=== PATIENT | female | born 1970 | race Caucasian/White ===

== ENCOUNTER 2016-05-22 06:29 | Day surgery (SDC) | payer BC ==
[~2016-05-22 06:29] MED LIST: Acetaminophen 1000mg Inj 100 ML IV ONE; LIDOCAINE W/ SODIUM BICARB 0.5 ML SYR ONE; Lactated Ringers 2,000 ML PRIMARY IV ONE; Sodium Chloride 0.9% 100 ML IV ONE
[2016-05-22] MEDS ORDERED: Prochlorperazine Edisylate Inj 10mg/2ml vial IVP PRN (06:51)
[2016-05-22] MEDS ORDERED: fentaNYL Inj 100 MCG/2 ML VIAL IVP PRN (06:51)
[2016-05-22] MEDS ORDERED: ATROPINE SULFATE 0.4 MG/1 ML VIAL IVP PRN (06:51)
[2016-05-22] MEDS ORDERED: Ondansetron ODT Tab 8 MG TAB PO PRN ×2 (06:51→09:30)
[2016-05-22] MEDS ORDERED: ONDANSETRON 4 MG/2 ML VIAL IVP PRN (06:51)
[2016-05-22] MEDS ORDERED: NORMAL SALINE 10 ML SYRINGE FLUSH IVP PRN ×2 (06:51→09:30)
[2016-05-22] MEDS ORDERED: BUPIVACAINE 0.25% W/ EPI - 10 ML VIAL ONE (06:55)
[2016-05-22] MEDS ORDERED: Opium-Belladonna 16.2-60mg 1 EACH SUPP.RECT RECTAL ONE ×2 (06:56→09:28)
[2016-05-22] MEDS ORDERED: Acetaminophen 1000mg Inj 100 ML IV ONE (06:59)
[2016-05-22] MEDS ORDERED: SCOPOLAMINE HYDROBROMIDE 1.5 MG - 1 EACH PATCH TRANSDERM ONE (06:59)
[2016-05-22] MEDS ORDERED: Lactated Ringers 1,000 ML PRIMARY IV SCH (07:00)
[2016-05-22 07:01] LABS: HEMATOCRIT 39.2 % (37.0-47.0); HEMOGLOBIN 13.3 g/dL (12.0-16.0)
[2016-05-22 07:02] LABS: BILIRUBIN,URINE NEGATIVE (NEG); CLARITY,URINE CLEAR (CLEAR); GLUCOSE, URINE (UA) NEGATIVE (NEG); LEUKOCYTE ESTERASE ,URINE SMALL (NEG); NITRATE,URINE NEGATIVE (NEG); OCCULT BLOOD,URINE LARGE (NEG); PROTEIN,URINE NEGATIVE (NEG); UROBILINOGEN,URINE 0.2 EU/dL (0.2)
[2016-05-22] MEDS ORDERED: KETAMINE 100 MG/1 ML - 5 ML ONE (07:02)
[2016-05-22] MEDS ORDERED: MIDAZOLAM 5 MG/1 ML ONE (07:02)
[2016-05-22] MEDS ORDERED: SUFENTANIL 50 MCG/1 ML ONE (07:03)
[2016-05-22 07:05] LABS: URINE SAMPLE TYPE VOIDED SPECIMEN
[2016-05-22] MEDS ORDERED: Sodium Chloride 0.9% vial 20 ML ONE (07:08)
[2016-05-22] MEDS ORDERED: ROCURONIUM 10 MG/1 ML - 5 ML VIAL IVP ONE (07:13)
[2016-05-22 07:24] LABS: BACTERIA,URINE FEW; RBC,URINE 40-60 /hpf; SQUAMOUS EPITHELIAL CELL,UR MANY; URINE CRYSTALS MODERATE; WBC,URINE 40-60
[2016-05-22 07:32] VITALS: RESP 16
[2016-05-22] MEDS ORDERED: LIDOCAINE HCL 2 % 10 ML JELLY URO-JECT TOPICAL ONE ×2 (08:53→09:25)
[2016-05-22] MEDS ORDERED: Sodium Chloride 0.9% 1,000 ML ONE (09:10)
[2016-05-22] MEDS ORDERED: ONDANSETRON 4 MG/2 ML VIAL ONE (09:19)
[2016-05-22] MEDS ORDERED: SUGAMMADEX SODIUM 200 MG/2 ML VIAL IV ONE (09:19)
[2016-05-22] MEDS ORDERED: IBUPROFEN 800 MG TABLET PO PRN (09:30)
[2016-05-22] MEDS ORDERED: KETOROLAC 30 MG/1 ML VIAL IVP PRN (09:30)
[2016-05-22] MEDS ORDERED: oxyCODONE-ACETAMINOPHEN 5-325 TAB PO PRN (09:31)
--- NOTE | 2016-05-22 09:35 | OB.OP.NOTE ---
Operative Report Surgeon: Sophia Wrapper Stitcher: Dmaien Nelson MD Anesthesia Type: General Anesthesia Provider: Lucy Graves CRNA Surgery Date: 05/22/16 Preoperative Diagnosis: MMR/Dysmenorrhea/Fibroids Postoperative Diagnosis: Same Procedure: [place] Hysterectomy/Bilateral Salpingectomy/Cystoscopy Estimated Blood Loss (mL): 50 Fluids: 1800 ml Complications: None Findings at Surgery: Slightly enlarged, retroverted uterus with a small visible subserosal fibroid on the right side. Normal tubes and ovaries. No visible evidence of bowel, bladder, or ureter injury. Indications for the Procedure: MMR/Dysmenorrhea/Fibroids Description of Procedure: See dictated operative report. Plan: Routine post op care and discharge to home.
[2016-05-22] MEDS ORDERED: KETOROLAC 30 MG/1 ML VIAL ONE (09:39)
[2016-05-22] MEDS ORDERED: Lactated Ringers 1,000 ML PRIMARY IV ONE (09:45)
[2016-05-22] MEDS ORDERED: HYDROmorphone 2 MG/1 ML ONE (10:03)
[2016-05-22] MEDS: HYDROmorphone 2 MG/1 ML IVP PRN ×2 (10:04→10:10)
[2016-05-22] MEDS ORDERED: oxyCODONE IR Tab 5 MG TAB PO ONE ×3 (10:28→11:28)
[2016-05-22 13:09] VITALS: TEMP 98.1
[2016-05-22] MEDS ORDERED: DOCUSATE 100 MG CAPSULE PO SCH (21:00)
== END 2016-05-22 12:45 | disposition home or self-care (01) ==
LOC: SDSC 06:29
PROVIDERS: ATTEND Obstetrics & Gynecology
DX: N92.1 Excessive and frequent menstruation with irregular cycle (principal); N94.6 Dysmenorrhea, unspecified; D25.9 Leiomyoma of uterus, unspecified
CPT/HCPCS: 52000; 58552; 81001; 84703; 85014; 85018; A4216; J0131; J0694; J1885; J2704; J1170; J2250; J2405; J3490; J7030; J7050; J7120

== ENCOUNTER 2016-07-11 19:50 | Emergency (ER) | payer BC ==
[2016-07-11 20:55] LABS: BILIRUBIN,URINE NEGATIVE (NEG); CLARITY,URINE CLEAR (CLEAR); GLUCOSE, URINE (UA) NEGATIVE (NEG); LEUKOCYTE ESTERASE ,URINE NEGATIVE (NEG); NITRATE,URINE NEGATIVE (NEG); OCCULT BLOOD,URINE MODERATE (NEG); PROTEIN,URINE NEGATIVE (NEG); UROBILINOGEN,URINE 0.2 EU/dL (0.2)
[2016-07-11 20:58] LABS: BACTERIA,URINE RARE; RBC,URINE 0-1 /hpf; SQUAMOUS EPITHELIAL CELL,UR RARE; URINE SAMPLE TYPE CLEAN CATCH URINE; WBC,URINE 0
--- NOTE | 2016-07-11 21:34 | PDOC ---
General Adult HPI - General Chief Complaint: General Medical Stated Complaint: Vaginal discharge s/p partial hysterectomy 7 weeks Date Seen by Provider: 07/11/16 Time Seen by Provider: 21:25 Source: POSITIVE: Patient, RN/MD Exam Limitations: POSITIVE: No limitations Nurse's Notes Reviewed & Considered: Yes - History of Present Illness Initial Comment: The patient is a 46-year-old female. Patient states that she underwent a robotic hysterectomy on 22 May. She states that 5-6 days ago she wiped after urinating and noticed some "brownish-pinkish"discharge on the toilet paper. She states she has had some brownish discharge when she wipes her bottom since. 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 Her appointment has been rescheduled for this coming Thursday at 3:45 PM. She states that about one hour [employer] she noticed that she had some bright red bleeding on the toilet paper when she wiped. She did shovel some snow today. Last intercourse was 8 days ago. She has had some constipation. No fevers or chills. No abdominal or pelvic pain. Have you received a tetanus shot in the past 10 years?: Yes Body Location Affected: REPORTS: Genitalia Timing: REPORTS: Intermittent (As above) Duration: <1 week (5-6 days) Severity: Mild Quality: REPORTS: Other (No pain anywhere) Context: DENIES: None, Sitting, Standing, Activity, Emotional stress, Coughing, Recent Trauma, Recent Surgery, Sleep, Rest, Lifting, Turning, Bending, Fall, Near Fall, Other Modifying Factors: improves with: Nothing Similar Symptoms Previously: No Recent Care Received: REPORTS: Recently Seen, Treated by MD, Surgery (Robotic hysterectomy 22 May) Any Prior Injuries Related to Current Complaint?: No - Patient Home Medications Home Medications: Home Medications Cholecalciferol (Vitamin D3) [Vitamin D-3] 1 cap PO DAILY #0 cap 12/06/13 Lisdexamfetamine Dimesylate [Vyvanse] 1 cap PO DAILY #20 cap 06/16/14 - Patient Allergies Allergies/Adverse Reactions: Allergies Allergy/AdvReac Type Severity Reaction Status Date / Time codeine [Codeine] AdvReac Intermediate nausea/vomi Verified 05/22/16 06:40 ting Past Medical History - [place] HEENT History: Denies History Cardiovascular History: Denies History Additional Cardiovasular History: MILD TACHYCARDIA Respiratory History: Denies History Gastrointestinal History: GERD Additional Gastrointestinal History: CHRONIC CONSTIPATION Genitourinary History: Denies History Additional Endocrine History: THYROID NODULE FOLLOWED BY DR. MOCTEZUMA Musculoskeletal History: Back Pain Prosthesis or Implant: No Neurological History: Denies History Blood Disorders: Denies History Psychiatric History: Anxiety Disorders, ADD History of Sexually Transmitted Diseases: No Cancer History: Denies History History of MDRO: No History of Other Communicable Diseases: Yes (VARICELLA) History of Exposure to Communicable Disease: No Alcohol Use: None Substance Use Type: None Previous Surgical History: Yes Type / Date of Surgery: PENNY/ THYROID BIOPSIES IN 2013 Anesthesia Reactions: No Malignant Hyperthermia: No Significant Family History: No pertinent family hx Past Medical History Reviewed: Reviewed - No Changes ROS - Limitations ROS Limitations: No Limitations Constitution: REPORTS: Denies Symptoms Cardiovascular: REPORTS: Denies Cardiac Symptoms Respiratory: REPORTS: Denies Resp Symptoms Neurological: REPORTS: Denies Neuro Symptoms Gastrointestinal: REPORTS: Denies GI Symptoms Endocrine: REPORTS: Denies Symptoms Musculoskeletal: REPORTS: Denies MS Symptoms Genitourinary: REPORTS: Discharge (Scant vaginal bleeding as above). DENIES: Dysuria, Flank Pain, Hematuria, Dark Urine, Difficulty Urinating Eyes: REPORTS: Denies Symptoms ENT: REPORTS: Denies Symptoms Skin: REPORTS: Denies Skin Symptoms Lympathic: REPORTS: Denies Lympathic Symptoms Immunologic: POSITIVE: Denies Symptoms Psychiatric: POSITIVE: Denies Psych Symptoms General Adult Exam - General Appearance General Appearance: POSITIVE: Alert, Cooperative, No Acute Distress, No Evidence of Trauma - Neck Neck: POSITIVE: Normal Inspection, Thyroid Normal - Respiratory Respiratory: POSITIVE: No Respiratory Distress, Breath Sounds Normal, Chest Non- Tender - Cardiovascular Cardiovascular: POSITIVE: Regular Rate & Rhythm, No Murmur, No Gallop, PMI Normal Peripheral Pulses: Radial (R): 2+, Radial (L): 2+ - Abdomen Abdomen: Soft: (All Quadrants), Normal Bowel Sounds: (All Quadrants), Denies Tenderness: (All Quadrants), No Splenomegaly: (All Quadrants), No Hepatomegaly: (All Quadrants), No Guarding: (All Quadrants), No Rebound: (All Quadrants), No Palpable Pulse: (All Quadrants), No Palpabale Mass: (All Quadrants), No Distention: (All Quadrants), No Rigidity: (All Quadrants) Additional Abdominal Details: Abdomen is nontender and without masses or organomegaly or rebound. Speculum pelvic examination showed the vaginal cuff to be intact and sutures are in place. No prolapse. There was some dark red blood on the left corner of the vaginal cuff. - Back Back: POSITIVE: Normal Inspection - Skin Skin: POSITIVE: Normal Color, Warm, Dry, No Rash - Neurological / Psychological Neurological: POSITIVE: Oriented X3, digital content specialist Normal As Tested, Motor Normal, Sensation Normal, 5, 6 General Adult Progress - Results Reviewed by me Lab Results Reviewed: Yes Lab Results:: Laboratory Results 07/11/16 Range/Units 20:58 Ur Collection Type Clean catch urine Urine Color Yellow Urine Clarity Clear (CLEAR) Urine pH 6.0 (5.0-8.5) Ur Specific [place] 1.005 (1.005-1.030) Urine Protein Negative (NEG) mg/dl Urine Glucose (UA) Negative (NEG) mg/dL Urine Ketones Negative (NEG) Urine Occult Blood Moderate H (NEG) Urine Nitrate Negative (NEG) Urine Bilirubin Negative (NEG) Urine Urobilinogen 0.2 (0.2) EU/dL Ur Leukocyte Esterase Negative (NEG) Urine RBC 0-1 (NONE) /hpf Urine WBC 0 (NONE) Ur Squamous Epith Cells Rare (NONE) Ur Renal Epithelial Cell None (NONE) Urine Crystals None Urine Bacteria Rare (NONE) Urine Casts None (NONE) Urine Mucus None (NONE) Urine Trichomonas None (NONE) Urine Yeast None (NONE) - Patient's Progress Pain Medication Addressed: POSITIVE: Not Applicable School/Work Release Addressed: POSITIVE: Yes (No heavy lifting or intercourse until cleared for this activity by your parking lot supervisor) Re-Examine Time: 21:00 Re-Examine Comment: Case discussed with Dr. Cortes, patient's parking lot supervisor. Advised instructions as above; keep appointment for follow-up with him Thursday as is already arranged. Status: POSITIVE: Unchanged Antibiotics Given: No - Consult Consult (If Yes, Name of Consulting MD & Time Called): Yes (, parking lot supervisor, [phone] ) Consulting MD will see pt:: POSITIVE: In Office Counseled: POSITIVE: Patient, RE: Lab Results, RE: DX, RE: Need for F/U Patient Care Time - Estimated PCT Patient Care Time (In Minutes): 35 Vital Signs - Recent Vital Signs Vital Signs: Blood pressure 125/99, heart rate 117, respiratory rate 14, temperature 98.1F, oxygen saturation on room air 99% - VS Reviewed Vital Signs Reviewed: Yes Discharge Clinical Impression: Post-op bleeding Discharge Disposition: Discharged to Home Condition: Stable Patient Instructions Given at Discharge: Postoperative Bleeding (ED) Additional Instructions: I spoke with your parking lot supervisor, , regarding your post hysterectomy vaginal bleeding. The suture line in the back of the vagina is intact and there is no prolapse. You do have a small amount of bleeding from the left corner of the vaginal cuff. Dr. Cortes does not feel that you have any emergent or serious problems. Avoid intercourse. Avoid lifting. Please take a stool softener for your constipation. Follow-up with Dr. Cortes Thursday at 3:45 PM, as is already arranged. Return to the emergency room any time if bleeding becomes heavy or if condition worsens in any way. Follow Up With: KRYS CORTES [Primary Care Provider] - (Instructions as above. Follow-up with Dr. Cortes Thursday as is arranged. Return here anytime if condition worsens.)
[2016-07-11 22:19] VITALS: RESP 16; TEMP 98.1
== END 2016-07-11 21:30 | disposition home or self-care (01) ==
LOC: ER 19:50
DX: N99.820 Postprocedural hemorrhage of a genitourinary system organ or structure following a genitourinary system procedure (principal); Z90.710 Acquired absence of both cervix and uterus
CPT/HCPCS: 81001; 99282

== ENCOUNTER 2016-08-09 19:10 | Emergency (ER) | payer BC ==
[2016-08-09] MEDS ORDERED: DIPH,PERTUSS,TET(ADACEL) VAC/PF 0.5 ML (Tdap) IM ONE (19:27)
[2016-08-09] MEDS ORDERED: Lidocaine 1% 10 MG/ML - 20 ML VIAL SUBCUT ONE (19:27)
[2016-08-09] MEDS ORDERED: Lidocaine Inj 1% 20 ML ONE (19:29)
[2016-08-09] MEDS ORDERED: BUPivacaine 0.5%/Epi Inj 50 ML VIAL ONE (22:50)
[2016-08-09] MEDS ORDERED: BUPIVACAINE 0.5% W/ EPI - 10 ML VIAL ONE (22:51)
--- NOTE | 2016-08-10 01:53 | PDOC ---
Hand / Wrist Injury HPI - General Chief Complaint: Laceration / Wound Stated Complaint: LEFT HAND LACERATION Date Seen by Provider: 08/09/16 Time Seen by Provider: 19:25 Source: POSITIVE: Patient Exam Limitations: POSITIVE: No limitations Nurse's Notes Reviewed & Considered: Yes - History of Present Illness Initial Comments: The patient is a 46-year-old female who presents to the emergency department with a laceration to her left hand. She states that she was making cuco and was slicing a tomato with a new knife. She apparently slipped with the knife and cut her left hand in the webspace between her thumb and index finger. She is unsure when she last had a tetanus shot however thinks it might of been 2000. She denies any other associated injuries or complaints. She does admit that she was drinking this evening. Have you received a tetanus shot in the past 10 years?: Yes - Patient Home Medications Home Medications: Home Medications Cholecalciferol (Vitamin D3) [Vitamin D-3] 1 cap PO DAILY #0 cap 12/06/13 Lisdexamfetamine Dimesylate [Vyvanse] 1 cap PO DAILY #20 cap 06/16/14 - Patient Allergies Allergies/Adverse Reactions: Allergies Allergy/AdvReac Type Severity Reaction Status Date / Time codeine [Codeine] AdvReac Intermediate nausea/vomi Verified 07/11/16 21:40 ting Past Medical History - [place] RIGGS History: Denies History Cardiovascular History: Denies History Additional Cardiovasular History: MILD TACHYCARDIA Respiratory History: Denies History Gastrointestinal History: GERD Additional Gastrointestinal History: CHRONIC CONSTIPATION Genitourinary History: Denies History Additional Endocrine History: THYROID NODULE FOLLOWED BY DR. MOCTEZMUA Musculoskeletal History: Back Pain Prosthesis or Implant: No Neurological History: Denies History Blood Disorders: Denies History Psychiatric History: Anxiety Disorders, ADD History of Sexually Transmitted Diseases: No Cancer History: Denies History History of MDRO: No History of Other Communicable Diseases: Yes (VARICELLA) History of Exposure to Communicable Disease: No Alcohol Use: None Substance Use Type: None Previous Surgical History: Yes Type / Date of Surgery: PENNY/ THYROID BIOPSIES IN 2013 Anesthesia Reactions: No Malignant Hyperthermia: No Significant Family History: No pertinent family hx Past Medical History Reviewed: Reviewed - No Changes ROS - Limitations ROS Limitations: No Limitations (Review of systems otherwise noncontributory) Hand / Wrist Injury Exam - General Appearance General Appearance: POSITIVE: Alert, Cooperative, No Acute Distress - Extremities Upper Extremity: POSITIVE: Other (examination left hand does reveal a 2 cm laceration in the webspace between the thumb and index finger. There is no visible foreign body or active bleeding at this time, the wound does appear to be through the full-thickness of the skin however does not involve any of the deep structures. Her movement of her thumb and index finger is normal and she has good cap refill and sensation to both) Neurovascular / Tendon: POSITIVE: Sensation Normal, Motor Normal, No Vascular Compromise, Tendon Function Normal Procedure - Laceration/Wound Repair Site of Lac/Wound:: Left hand in the webspace between the thumb and index finger Wound Length (cm): 2 Wound's Depth, Shape: Into subcutaneous tissue, Linear Distal CMS: Yes Skin Prep: Betadine Prep Local Anesthesia Used - Indicate Amt Used in Comment: Lidocaine 1%: Yes Wound Explored: Clean Wound Repaired With: Sutures single layer Suture Size/Type: 5:0, Ethilon Number of Sutures: 3 Sterile Dressing Applied?: Yes Hand / Wrist Injury Progress - Patient's Progress MDM / ED Course: The laceration was repaired as above. Wound care instructions were discussed. The patient is advised return to the emergency room if increased bleeding or sign of infection. She is advised to have sutures removed in approximately 10 days. - Consult Counseled: POSITIVE: Patient, RE: DX, RE: Need for F/U Patient Care Time - Estimated PCT Patient Care Time (In Minutes): 25 Vital Signs - VS Reviewed Vital Signs Reviewed: Yes Discharge Clinical Impression: Laceration - injury Discharge Disposition: Discharged to Home Condition: Stable Patient Instructions Given at Discharge: Laceration (ED) Additional Instructions: Keep the dressing in place and keep the wound dry for the first 24 hours. After that keep the wound covered during the day with some antibiotic ointment and a Band-Aid and leave open at night. Return to the emergency room if increased pain or drainage from the wound or other sign of infection. Follow- up for suture removal in 10 days. Follow Up With: KRYS STEVENS [Primary Care Provider] -
[2016-08-10 02:41] VITALS: RESP 16; TEMP 97.6
== END 2016-08-09 20:21 | disposition home or self-care (01) ==
LOC: ER 19:10
DX: S61.412A Laceration without foreign body of left hand, initial encounter (principal); W26.0XXA Contact with knife, initial encounter
CPT/HCPCS: 12001; 90471; 99282; J2001